=== PATIENT | female | born 1930 | race Asian ===

== ENCOUNTER 2019-01-30 13:06 | Inpatient (IN) | payer MEDICARE, OTHER ==
[~2019-01-30] VITALS: Ht 147.3 cm; Wt 51.1 kg
[2019-01-30] MEDS ORDERED: SYNTHROID0.075 MG/T PO (16:03)
[2019-01-30] MEDS ORDERED: ARICEPT10 MG PO (16:03)
[2019-01-30] MEDS ORDERED: OMEGA-31 SGL PO (16:04)
[2019-01-30] MEDS ORDERED: THE MEDICINE S200 M2 PO (16:05)
[2019-01-30] MEDS ORDERED: MAGNESIUM200 MG PO (16:07)
[2019-01-30] MEDS ORDERED: VITAMIN D31000 I1 PO (16:09)
[2019-01-30] MEDS ORDERED: VITAMINC1000TA (16:09)
[2019-01-30] MEDS ORDERED: VITAMIN D3400 I1 PO (16:10)
[2019-01-30] MEDS ORDERED: SELENIUM200 MC5 PO (16:11)
[2019-01-30] MEDS ORDERED: NATURAL POTASS595 MG PO (16:12)
[2019-01-30] MEDS ORDERED: MULTI VITAMINS1 TAB PO (16:12)
[2019-01-30 16:56] LABS: BASO # 0.1 (0.0-0.2); BASO % 0.8 % (0.0-2.0); EOS % 0.2 % (0-4.0); GRAN # 6.6 (1.4-6.5); GRAN % 69.4 % (42.2-75.2); HEMATOCRIT 40.4 % (42.0-52.0); HEMOGLOBIN 13.4 g/dl (13.5-18.0); LYMPH # 2.2 (1.2-3.4); LYMPH % 22.8 % (20.0-51.0); MEAN CELL VOLUME 100 fl (80.0-100.0); MEAN CORPUSCULAR HEMOGLOBIN 33 pg (27.0-31.0); MEAN CORPUSCULAR HGB CONC 33 g/dl (33.0-37.0); MEAN PLATELET VOLUME 8.9 fl (7.4-10.4); MONO # 0.6 (0.1-0.6); MONO % 6.5 % (1.7-9.3); PLATELET COUNT 213 K/mm3 (130-400); RED BLOOD COUNT 4.04 M/mm3 (4.20-5.60); REDCELL DISTRIBUTION WIDTH-CV 11.9 % (11.5-14.5)
--- NOTE | 2019-01-30 17:00 | NUR ---
Patient alert and oriented, answers questions appropriately. See assessment. RLE with slight edema noted, pulses palpable, neuros intact, no numbness or tingling noted. Pain 2/10 to RLE with movement. Admission information reviewed with patient. Fernández catheter insert, clear yellow urine returned. NWB to RLE. No other c/o at this time.
[2019-01-30 17:08] LABS: ALBUMIN 4.2 gm/dL (3.5-5.0); BILIRUBIN,TOTAL 0.6 mg/dL (0.0-1.0); CALCIUM 9.3 mg/dL (8.4-10.2); CREATININE, serum 0.78 (0.66-1.25); TOTAL PROTEIN 7.3 gm/dL (6.4-8.2)
[2019-01-30 17:15] LABS: PRE ALBUMIN 17.9 mg/dL (17.6-36.0)
[2019-01-30 17:20] VITALS: BP 133/57; PULSE 81; TEMP 97.5
[2019-01-30 17:20] LABS: PROTHROMBIN TIME 11.3 SECONDS (9.7-12.8)
[2019-01-30 19:01] LABS: MUCOUS Present /lpf; PH 5 (5-8); URINE APPEARANCE Cloudy; URINE BACTERIA Many /hpf; URINE BILIRUBIN Negative (NEGATIVE); URINE BLOOD Negative (NEGATIVE); URINE COLOR Yellow; URINE GLUCOSE Negative (NEGATIVE); URINE KETONE Negative (NEGATIVE); URINE LEUKOCYTE ESTERASE 2+ (NEGATIVE); URINE NITRATE Positive (NEGATIVE); URINE PROTEIN(semi-quant) Negative (NEGATIVE); URINE UROBILINOGEN Negative (NEGATIVE)
[2019-01-30 19:10] LABS: COLLECTION METHOD CATHETER
[2019-01-30 20:00] VITALS: BP 133/54; PULSE 66; TEMP 98.1
[2019-01-30 23:52] VITALS: BP 140/64; PULSE 71; TEMP 98.3
[2019-01-31] VITALS (13 sets, daily range): BP systolic 113–192; BP diastolic 53–85; PULSE 65–89; TEMP 97.5–98.2
--- NOTE | 2019-01-31 05:06 | NUR ---
Patient has rested well throughout the night. Complains of pain about 0400 and Tylenol was given for this, along with scheduled synthroid. Otherwise patient has been NPO since 0300. Patient turns well with 1 assist from staff. Fernández catheter present and draining yellow urine with sediment present. Will continue to monitor patient.
--- NOTE | 2019-01-31 10:00 | NUR ---
Medicated with Morphine for c/o right hip pain. Repositioned in bed. Ice pack to hip.
--- NOTE | 2019-01-31 12:20 | NUR ---
Surgical consent signed. To surgery per bed with OR staff. Family here.
--- NOTE | 2019-01-31 12:27 | NUR ---
Comic Writer stopped by and offered prayer and support with patient.
--- NOTE | 2019-01-31 13:45 | NUR ---
Returned to room per bed from surgery. Drowsy. No c/o pain. Gauze dressing to right hip CDI. VSS.
--- NOTE | 2019-01-31 13:54 | NUR ---
Plan: Possibly to return home with Hector and daughter Luis ([phone], who are also patients emergency contact. DPOA is patients , and they reside in [place]. Assess: ERIK's met with patient with her family present. Patient gave permission to discuss information in front of family. Patient denied using any DME, and reports that her PCP is Dr. Ramírez. The patient does not have any follow up appointments at this time. Medication is provided [facility]. Patient denied having any health concerns currently, she had not had surgery at this time. Action: We did discuss HHS, patient and family indicated that they would know discharge needs after surgery.
--- NOTE | 2019-01-31 14:40 | NUR ---
Medicated with Morphine for c/o right knee pain.
--- NOTE | 2019-01-31 18:30 | NUR ---
No c/o pain. VSS. Taking diet well. Family at bedside.
--- NOTE | 2019-01-31 20:50 | NUR ---
Patient alert and oriented. Dressing to right hip clean, dry and intact. Ice pack in place. Patient utilizing tylenol for pain relief this shift. IV to right wrist. Fernández in place.
[2019-02-01] VITALS: BP 126/74; PULSE 78; TEMP 97.9
[2019-02-01 04:00] VITALS: BP 134/62; PULSE 76; TEMP 97.9
[2019-02-01 06:18] LABS: BASO % 0.3 % (0.0-2.0); GRAN # 9.1 (1.4-6.5); GRAN % 80.5 % (42.2-75.2); HEMATOCRIT 39.1 % (37.0-47.0); HEMOGLOBIN 12.9 g/dl (12.5-16.0); LYMPH # 1.4 (1.2-3.4); LYMPH % 12.5 % (20.0-51.0); MEAN CELL VOLUME 99 fl (80.0-100.0); MEAN CORPUSCULAR HEMOGLOBIN 33 pg (27.0-31.0); MEAN CORPUSCULAR HGB CONC 33 g/dl (33.0-37.0); MEAN PLATELET VOLUME 9.1 fl (7.4-10.4); MONO # 0.7 (0.1-0.6); MONO % 6.3 % (1.7-9.3); PLATELET COUNT 212 K/mm3 (130-400); RED BLOOD COUNT 3.96 M/mm3 (4.10-5.30); REDCELL DISTRIBUTION WIDTH-CV 11.6 % (11.5-14.5)
[2019-02-01 06:30] LABS: CALCIUM 8.8 mg/dL (8.4-10.2); CREATININE, serum 0.65 (0.52-1.25)
[2019-02-01 08:20] VITALS: BP 137/67; PULSE 89; TEMP 97.4
[2019-02-01 12:04] VITALS: BP 130/62; PULSE 70; TEMP 99.1
[2019-02-01 16:21] VITALS: BP 131/62; PULSE 74; TEMP 97.8
--- NOTE | 2019-02-01 18:32 | NUR ---
Patient sitting in chair upon shift assessment this morning. Patient has no concerns at this time. Steiner and fluids discontinued this shift. Patient has been up in chair all day and to the bathroom once since steiner discontinued. Patient states it feels much more comfortable to have the steiner out. States the ice also feels good on her hip. [place] given twice this shift which controls pain well. Patient has not rated her pain lower than a 6/10 this shift but does not wince when moving and denies needing pain medication stating "it feels ok" when shes rates it at a 6 or 7. Patient has had family present in the room throughout the day. Call light in reach throughout shift.
[2019-02-01 20:11] VITALS: BP 117/59; PULSE 77; TEMP 97.6
--- NOTE | 2019-02-01 21:30 | NUR ---
PATIENT ASSISTED TO BED WITH ONE AND WALKER. VOIDS PRIOR TO GOING TO BED. IS ALERT AND ORIENTED. TAKES HS MEDS WITHOUT PROBLEM. LIKES ICE PACK TO RIGHT HIP, MELINDA D/I. DENIES NEED FOR PAIN MED AT THIS TIME.
[2019-02-02] VITALS: BP 138/61; PULSE 70; TEMP 97.3
--- NOTE | 2019-02-02 01:41 | NUR ---
UP TO BATHROOM TO VOID DOES WELL. NO REQUEST FOR PAIN MED AT THIS TIME.
[2019-02-02 04:29] VITALS: BP 123/55; PULSE 66; TEMP 97.6
--- NOTE | 2019-02-02 05:10 | NUR ---
Up to bathroom to void, partial bed bath given by PCT at this time. Pt denies need for pain med at this time.
[2019-02-02 06:35] LABS: BASO # 0.1 (0.0-0.2); BASO % 0.7 % (0.0-2.0); EOS % 0.5 % (0-4.0); GRAN # 4.3 (1.4-6.5); GRAN % 56.5 % (42.2-75.2); HEMOGLOBIN 11.8 g/dl (12.5-16.0); LYMPH # 2.5 (1.2-3.4); LYMPH % 33.1 % (20.0-51.0); MEAN CELL VOLUME 99 fl (80.0-100.0); MEAN CORPUSCULAR HEMOGLOBIN 33 pg (27.0-31.0); MEAN CORPUSCULAR HGB CONC 33 g/dl (33.0-37.0); MEAN PLATELET VOLUME 8.8 fl (7.4-10.4); MONO # 0.7 (0.1-0.6); MONO % 8.8 % (1.7-9.3); PLATELET COUNT 176 K/mm3 (130-400); REDCELL DISTRIBUTION WIDTH-CV 11.9 % (11.5-14.5)
[2019-02-02 06:36] LABS: HEMATOCRIT 35.6 % (37.0-47.0)
--- NOTE | 2019-02-02 06:55 | NUR ---
awake resting in bed, bedside shift report received from FORTINO Ortiz
--- NOTE | 2019-02-02 08:15 | NUR ---
assisted up to bathroom after breakfast, had bowel movement and voided qs, then back to room and into bed, full assessment completed, see interventions for further info
[2019-02-02] MEDS ORDERED: CEFTIN 250250 MG/TAB PO (08:24)
[2019-02-02] MEDS ORDERED: ASPI325T6 PO (08:25)
[2019-02-02] MEDS ORDERED: NORCO 325 MG-51 TAB PO (08:25)
[2019-02-02] MEDS ORDERED: GOOD NEIGH1200 MG/15 PO (08:26)
[2019-02-02] MEDS ORDERED: DULCOLAX S10 MG/SUPP RC (08:26)
[2019-02-02] MEDS ORDERED: TYLENOL 325MG325 MG PO (08:26)
[2019-02-02] MEDS ORDERED: OSCAL 500 TAB500 MG PO (08:26)
[2019-02-02] MEDS ORDERED: SENOKOT S 50 MG1 TAB PO (08:27)
[2019-02-02 08:30] VITALS: BP 137/61; PULSE 90; TEMP 97.7
--- NOTE | 2019-02-02 09:15 | NUR ---
occupational therapy in to work with patient
--- NOTE | 2019-02-02 10:19 | NUR ---
The patient was screened for inpatient rehab. [facility] director reports they can accept the patient. SW will continue to follow.
--- NOTE | 2019-02-02 11:12 | NUR ---
Initial visit; Patient and thanked Statement Request Clerk for looking in on Barbra, offering God's blessings and keeping her in Statement Request Clerk's prayers.
[2019-02-02 11:25] VITALS: BP 128/62; PULSE 71; TEMP 97.8
--- NOTE | 2019-02-02 11:35 | NUR ---
resting in chair and denies needs
--- NOTE | 2019-02-02 12:26 | NUR ---
having lunch, discharged per chair when finished eating
--- NOTE | 2019-02-02 12:54 | NUR ---
discharged per recliner to Inpatient Rehab
--- NOTE | 2019-02-02 13:35 | NUR ---
Patient's physician consulted with ortho physician and therapy and spoke with patient regarding rehab options. Per a referral given, by physician, [facility] screened and accepted. Patient transferred to inpatient rehab today.
[2019-02-03] MEDS ORDERED: [UNRECOGNIZED DRUG - CODE] PO (11:00)
[2019-02-03] MEDS ORDERED: SELENIUM200 MC5 PO (11:05)
[2019-02-03] MEDS ORDERED: NATURAL POTASS595 MG PO (11:07)
== END 2019-02-02 12:55 | DRG 481 ==
LOC: MEDICAL 13:06 → INPTSU 14:27 → EDSEX 14:27 → SURG 14:27
PROVIDERS: Orthopaedic Surgery; ADMIT Hospitalist
PROC: 0QS634Z Reposition Right Upper Femur with Internal Fixation Device, Percutaneous Approach (ICD-10-PCS; principal; 2019-01-31 13:00)
DX: S72.011A Unspecified intracapsular fracture of right femur, initial encounter for closed fracture (principal); N39.0 Urinary tract infection, site not specified; E03.9 Hypothyroidism, unspecified; G31.84 Mild cognitive impairment of uncertain or unknown etiology; B96.20 Unspecified Escherichia coli [E. coli] as the cause of diseases classified elsewhere; W18.30XA Fall on same level, unspecified, initial encounter; Z90.49 Acquired absence of other specified parts of digestive tract; Y93.89 Activity, other specified; Y92.89 Other specified places as the place of occurrence of the external cause; Y99.8 Other external cause status
CPT/HCPCS: 99222-AI; 99231-AI; 99232-AI; 99239; A4216; A9284; C1713; J0690; J0696; J1100; J2250; J2270; J2704; J2795; J3010; J7030; J7042

== ENCOUNTER 2019-02-02 11:08 | Inpatient (IN) | payer MEDICARE, OTHER ==
[~2019-02-02] VITALS: Ht 147.3 cm; Wt 45.7 kg
[~2019-02-02 11:08] MED LIST: ARICEPT10 MG PO; ASPI325T6 PO; CEFTIN 250250 MG/TAB PO; DULCOLAX S10 MG/SUPP RC; GOOD NEIGH1200 MG/15 PO; MAGNESIUM200 MG PO; MULTI VITAMINS1 TAB PO; NATURAL POTASS595 MG PO; NORCO 325 MG-51 TAB PO; OMEGA-31 SGL PO; OSCAL 500 TAB500 MG PO; SELENIUM200 MC5 PO; SENOKOT S 50 MG1 TAB PO; SYNTHROID0.075 MG/T PO; THE MEDICINE S200 M2 PO; TYLENOL 325MG325 MG PO; VITAMIN D31000 I1 PO; VITAMIN D3400 I1 PO; VITAMINC1000TA
--- NOTE | 2019-02-02 12:58 | NUR ---
admitted per recliner to room 336
--- NOTE | 2019-02-02 13:15 | NUR ---
occupational therapy in to work with patient
--- NOTE | 2019-02-02 14:27 | NUR ---
out of room and working with therapy
--- NOTE | 2019-02-02 15:35 | NUR ---
back in room and sitting up in recliner, admission assessment completed, see intervention for further info,
--- NOTE | 2019-02-02 15:51 | NUR ---
speech therapy in to work with patient
[2019-02-02 17:07] VITALS: BP 126/52; PULSE 81; TEMP 98
--- NOTE | 2019-02-02 17:15 | NUR ---
resting in chair visiting with family
[2019-02-02 17:17] VITALS: BP 126/52; PULSE 81; TEMP 98
--- NOTE | 2019-02-02 17:45 | NUR ---
sitting up in chair ready for supper
--- NOTE | 2019-02-02 18:46 | NUR ---
bedside shift report given to FORTINO Coronel
--- NOTE | 2019-02-02 20:15 | NUR ---
Pt. sitting up in bed at this time. Pt. is A&OX3, assessment complete. Pt. reports pain at a 3 on pain scale to rt. hip, gave meds per orders. Pt. denies further needs, call light within reach.
[2019-02-03 04:15] VITALS: BP 147/65; PULSE 56; TEMP 97.9
[2019-02-03 04:52] VITALS: BP 132/64; PULSE 62; TEMP 97.4
--- NOTE | 2019-02-03 07:30 | NUR ---
Patient resting in bed at this time, call light in reach and bed alarm is on. Patient reporting right hip pain of 6/10 and given prn pain meds. Will continue to monitor.
--- NOTE | 2019-02-03 10:54 | NUR ---
SW met with the patient to complete assessment on Rehab. Pt is alert & oriented. She is able to verbally communicate her needs & wants to others but does have an accent so is sometimes difficult to understand. Pt lives w/ her , son, & [id number]. The home is 2 story home w/ 2 steps to enter from the garage. There are total of 12 steps to the basement (where she lives w/ her ) & then her son & [id number] live on the 2nd floor. There is a bed room on the main floor w/ a full bathroom, which they are considering moving to while pt recovers. The bathroom in the basement has a tub/shower combo w/ curtain but no grab bars & the toilet is ADA height. The bathroom on the main floor has a tub/shower combo w/ curtain but no grab bars & the toilet is standard height. Pt reports walking w/o a device, did her own ADL's, cooking, housekeeping, laundry, & shopping. Pt reports having a s/cane. Pt does not receive any services. They have 1 dog & 2 indoor cats, which her cares for. Pt's PCP is Dr. Nguyen and receives her medications at [facility] in [place]. She reported no issues w/ being able to afford her medications. The pt reports having advanced directives w/ her , Hector, designated as DPOA, there is no copy in the EMR chart, so will talk w/ to obtain copy. Pt wants to be able to return to home w/ her & family. Pt's goal is to get stronger & be able to take care of herself.
[2019-02-03] MEDS ORDERED: [UNRECOGNIZED DRUG - CODE] PO (11:00)
[2019-02-03] MEDS ORDERED: SELENIUM200 MC5 PO (11:05)
[2019-02-03] MEDS ORDERED: NATURAL POTASS595 MG PO (11:07)
[2019-02-03 15:48] VITALS: BP 122/65; PULSE 76; TEMP 98.2
--- NOTE | 2019-02-03 19:39 | NUR ---
Patient resting in bed at this time, call light in reach and bed alarm is on. Reported right hip pain and was given prn tylenol with good effect. Tolerated diet well this shift. Reported off to night nurse.
--- NOTE | 2019-02-03 21:30 | NUR ---
Hs meds along with tylenol reviewed and given. Reports no pain at this time. Rests in bed and BLE elevated on pillow. Benton hose removed and will reapply when awakens. Alert but forgetful at times.
--- NOTE | 2019-02-04 01:20 | NUR ---
Up to the bathroom with mod assist to sit up on side of bed. Voids and manages all toileting tasks. Denies pain. States yes to getting sleep tonight. Rests self back in bed. Benton hose reapplied.
[2019-02-04 05:28] VITALS: BP 131/60; PULSE 66; TEMP 98.3
--- NOTE | 2019-02-04 06:22 | NUR ---
PATIENT DECLINES PAIN MED. STATES SHE'LL TAKE IT WITH BREAKFAST.
--- NOTE | 2019-02-04 09:13 | NUR ---
Patient resting in recliner with call light in reach and alarm on.
--- NOTE | 2019-02-04 14:17 | NUR ---
A Family Conference was conducted with pt, her , Hector, & [id number]. Also present was OT, & Vest Maker/SW. Vest Maker/SW started by explaining the purpose of the meeting. The therapists explained how pt has been functioning & making good progress & that we would be making the pt Mod I in her room. Pt & family were both pleased to hear this & agreed she was doing well. Informed them the d/c has been set for 02/06/19, with recommendations for outpatient PT, which they were fine with. They asked some questions which team answered. Pt & family are pleased with progress & care pt is receiving & feel the team is helping her meet her goals.
[2019-02-04 15:50] VITALS: BP 119/64; PULSE 70; TEMP 98.3
--- NOTE | 2019-02-04 18:43 | NUR ---
Patient attended all therapies today. Tolerated diet well this shift. Did have some mild pain this morning and was given prn pain meds with some effect.
--- NOTE | 2019-02-04 20:00 | NUR ---
HS meds all reviewed and given. Denies need for tylenol at this time. States will let nurse know when she needs. Alert and sitting up in recliner. Benton hose off and patient reapplied before resting back in bed. gauze/tegaderm dressing removed and explained per ortho to leave open to air and report any drainage. Right hip incision with swelling, mild bruising, well approximated and no drainage. Patient rests on left side and reviewed placeing pillow between legs to keep hip alignment.
--- NOTE | 2019-02-04 23:09 | NUR ---
Patient reports hip pain starting up "a little" and tylenol given.
--- NOTE | 2019-02-05 02:45 | NUR ---
Patient has been resting with eyes closed.
[2019-02-05 05:00] VITALS: BP 125/61; PULSE 68; TEMP 98.2
--- NOTE | 2019-02-05 05:34 | NUR ---
REPORTS HAD MORE PAIN TONIGHT AND DIDN'T SLEEP WELL. OFFERED TYLENOL AND DECLINED AT THIS TIME. ICE PACK APPLIED RIGHT HIP.
--- NOTE | 2019-02-05 07:11 | NUR ---
bedside shift report received from FORTINO Colvin
--- NOTE | 2019-02-05 07:35 | NUR ---
sitting up in bed and has had breakfast, tolerated well, full assessment completed, see interventions for further info
--- NOTE | 2019-02-05 08:22 | NUR ---
ambulating in hernandez with physical therapy
--- NOTE | 2019-02-05 09:15 | NUR ---
Contacted [facility]. Equipment request was made for a walker w/ front wheels for 02/06/19. Faxed the equipment request information.
--- NOTE | 2019-02-05 12:22 | NUR ---
sitting up in chair eating lunch, at bedside
--- NOTE | 2019-02-05 13:37 | NUR ---
in chair and appears to be dozing
--- NOTE | 2019-02-05 14:15 | NUR ---
occupational therapy in to work with patient
--- NOTE | 2019-02-05 14:57 | NUR ---
Visited w/ pt & about d/c for tomorrow, 02/06/19. Informed them of the walker being ordered from [facility] & they can pick it up tomorrow. Inquired if they had decided on which outpatient therapy facility they wanted to use & stated [facility]. Told them we will make the first appointment for them. Reviewed the Medicare Rights form w/ them, which they stated they understood & pt signed the form. Asked if they had any other questions/concerns at this time, which they did not.
[2019-02-05 18:26] VITALS: BP 99/61; PULSE 93; TEMP 98.7
--- NOTE | 2019-02-05 19:03 | NUR ---
bedside shift report given to FORTINO Hickman
--- NOTE | 2019-02-06 01:45 | NUR ---
PATIENT DOING WELL TONIGHT. C/O MILD PAIN, DENIES NEED FOR PAIN MEDICATION AT THIS TIME. INCISION TO R HIP CDI WITH STERI STRIPS INTACT. PATIENT AMBULATING IN ROOM INDEPENDENTLY WITHOUT ISSUES. NO FURTHER NEEDS AT THIS TIME.
[2019-02-06 05:03] VITALS: BP 136/69; PULSE 67; TEMP 97.7
--- NOTE | 2019-02-06 09:09 | NUR ---
Scheduled f/u appts with PCP and OP PT. Faxed face sheet, H&P, and last two PT notes to [facility].
--- NOTE | 2019-02-06 09:41 | NUR ---
Report from FORTINO Hickman. Pt moe mod I in room with walker, gripper socks on, reading glasses in reach. Pt takes pills a couple at a time with water. Pt places her feet at waist level on walker. Questions answered about meds, ASA, TEDs.
[2019-02-06] MEDS ORDERED: ASPI325T6 PO (12:05)
--- NOTE | 2019-02-06 12:08 | NUR ---
arrived with trent carmona late this morning.
--- NOTE | 2019-02-06 19:00 | NUR ---
Printed Pt health summary, discharge summary, and home med list and reviewed with pt and . Provided paper prescription for ASA. Stressed importance of f/u appts. Reviewed medications, copy of handwritten revisions to chart. Belongings gathered by pt and spouse, including dentures, glasses, new walker, clothes, shoes, and toiletries. Pt transported via wheelchair by RECREATION PROFESSOR for ride home with . Pt and denied any questions. was anxious to discharge, was apologetic about him and understanding about delay.
== END 2019-02-06 16:15 | disposition home or self-care (01) | DRG 560 ==
PROVIDERS: ADMIT Internal Medicine
DX: S72.011D Unspecified intracapsular fracture of right femur, subsequent encounter for closed fracture with routine healing (principal); N39.0 Urinary tract infection, site not specified; W18.39XD Other fall on same level, subsequent encounter; E03.9 Hypothyroidism, unspecified; G31.84 Mild cognitive impairment of uncertain or unknown etiology; B96.20 Unspecified Escherichia coli [E. coli] as the cause of diseases classified elsewhere; Z79.82 Long term (current) use of aspirin; Z79.891 Long term (current) use of opiate analgesic
CPT/HCPCS: 99222-AI; 99232-AI; A9284